=== PATIENT | female | born 1945 | race Caucasian/White ===

== ENCOUNTER 2022-01-17 11:58 | Emergency (ER) | payer OTHER ==
[~2022-01-17] VITALS: Ht 162.6 cm; Wt 67.6 kg
[2022-01-17 12:14] VITALS: BP_SYST 120
--- NOTE | 2022-01-17 12:16 | NUR ---
Triaged pt and placed in waiting room until bed becomes available. Pt is A&Ox4. Pt c/o right foot swelling since saturday. No trauma. Skin is intact. No redness. Edema in right foot noted. NKA. Has hx of Depression and HTN. VSS. Daughter with pt. No chest pain and no sob. Denies n/v.
--- NOTE | 2022-01-17 12:56 | NUR ---
ER in triage examining patient.
[2022-01-17 13:33] LABS: HEMATOCRIT 30.6 % (36-48); HEMOGLOBIN 10.5 g/dL (12.0-16.0); MEAN CORPUSCULAR HEMOGLOBIN 27 pg (27-31); MEAN CORPUSCULAR HGB CONC 34 % (32-36); MEAN CORPUSCULAR VOLUME 79 fL (79.0-98.0); PLATELET COUNT (AUTO) 93 K/uL (130-430); RED BLOOD CELL COUNT(AUTO) 3.88 MIL/uL (4.2-6.2); RED CELL DISTRIBUTION WIDTH 16.5 % (9.0-15.0); WHITE BLOOD COUNT (AUTO) 4.9 K/uL (4.8-10.8)
[2022-01-17 13:44] LABS: ANION GAP 5 (5-15); CALCIUM 8.3 mg/dL (8.4-11.0); CHLORIDE 103 mmol/L (98-107); CREATININE 0.94 mg/dL (0.55-1.30); GLUCOSE 106 mg/dL (70-99); POTASSIUM 4.2 mmol/L (3.5-5.1); SODIUM SERUM 135 mmol/L (136-145); UREA NITROGEN, BLOOD 18 mg/dL (8-21)
--- NOTE | 2022-01-17 14:20 | NUR ---
RECEIVED CALL FROM ULTRASOUND, PT HAS + DVT, ER DR. PINON MADE AWARE
[2022-01-17 14:24] LABS: ATYPICAL LYMPHOCYTES % 34 % (0-0); BASOPHILS % (MANUAL) 0 % (0-2); EOSINOPHILS % (MANUAL) 0 % (0-7); LYMPHOCYTES % (MANUAL) 37 % (20-46); MONOCYTES % (MANUAL) 7 % (0-11)
--- NOTE | 2022-01-17 14:47 | NUR ---
EKG performed at by Juanpablo oorzco. Physician given copy of EKG for review.
[2022-01-17 15:10] LABS: PROTHROMBIN TIME 9.7 SECS (9.5-12.5)
[2022-01-17] MEDS ORDERED: *LOVENOX 1MG/KG Q12H/PHARMACY XX ONE (18:30)
--- NOTE | 2022-01-17 18:40 | NUR ---
CALL FOR PT OUT IN LOBBY, NO ANSWER
[2022-01-17] MEDS ORDERED: ENOXAPARIN SODIUM 60 MG/0.6 ML SYRINGE SUBCUT SCH (21:00)
[2022-01-18] MEDS ORDERED: APIX5TAB4 PO (09:47)
== END 2022-01-17 18:40 | disposition left against medical advice (07) ==
LOC: SED 11:58 → STU 18:29 → UNDOADMIN 18:29 → UNDODISIN 18:35
DX: M25.471 Effusion, right ankle (principal); I10 Essential (primary) hypertension
CPT/HCPCS: 36415; 80048; 84484; 85007; 85027; 85610-TC; 93005; 93971; 99285; G0378

== ENCOUNTER 2022-01-18 09:30 | Emergency (ER) | payer OTHER ==
[~2022-01-18] VITALS: Ht 162.6 cm; Wt 67.6 kg
[2022-01-18 09:42] VITALS: BP_SYST 117
[2022-01-18] MEDS ORDERED: APIX5TAB4 PO (09:47)
[2022-01-18 13:40] VITALS: BP_SYST 114
== END 2022-01-18 13:40 | disposition home or self-care (01) ==
LOC: SED 09:30
DX: I82.401 Acute embolism and thrombosis of unspecified deep veins of right lower extremity (principal); R22.41 Localized swelling, mass and lump, right lower limb; Z79.899 Other long term (current) drug therapy
CPT/HCPCS: 99283